=== PATIENT | male | born 1975 | race Caucasian/White ===

== ENCOUNTER 2018-03-11 09:42 | Emergency (ER) | payer BC, SELFPAY ==
[2018-03-11 09:50] VITALS: BP 143/93; PULSE 48; RESP 16; TEMP 36.7; O2SAT 100; BMI 29.4
--- NOTE | 2018-03-11 10:27 | ED_ITS ---
HPI - Eye Problem General Chief complaint: Eye Problems Stated complaint: metal in left eye Time Seen by Provider: 03/11/18 09:52 Source: patient Mode of arrival: ambulatory Limitations: no limitations History of Present Illness HPI Narrative: Patient is a 42-year-old male who presents with left eye irritation and pain. 2 days ago he was working on his car when something fell into his eye. It has been irritated ever since he did try to put Visine in. He was seen evaluated the walk-in clinic he what was able to get up small piece of metal out however he continues to have a rust ring. chief complaint: eye pain and eye redness Onset (ago): day(s) Related Data Previous Rx's Medication Instructions Recorded gentamicin 2 drop EYE-LEFT Q4HRWA 7 Days #5 ml 03/11/18 Allergies Allergy/AdvReac Type Severity Reaction Status Date / Time No Known Drug Allergies Allergy Verified 03/11/18 09:49 Review of Systems Review of Systems GENERAL: Denies chills,fever HEENT: Denies throat pain RESPIRATORY: Denies dyspnea, cough, wheezing CARDIOVASCULAR: Denies chest pain, palpitations GASTROINTESTINAL: Denies nausea, vomiting MUSCULOSKELETAL: Denies extremity pain, injury SKIN: No rash, no laceration, no pruritus NEUROLOGIC: Denies weakness, dizziness, headache, numbness 8 point review of systems is negative except for those stated above and HPI Exam Initial Vital Signs Initial Vital Signs: Vital Signs Temperature 98.0 F 03/11/18 09:50 Pulse Rate 48 L 03/11/18 09:50 Respiratory Rate 16 03/11/18 09:50 Blood Pressure 143/93 H 03/11/18 09:50 Pulse Oximetry 100 03/11/18 09:50 GENERAL: Well-appearing, well-nourished and in no acute distress. CARDIOVASCULAR: peripheral pulses in tact, cap refill <2 sec RESPIRATORY: No respiratory distress, speaks in full sentences without difficulty EXTREMITIES: Normal range of motion, no clubbing or edema. Neurovascularly intact NEUROLOGICAL: Cranial nerves II through XII grossly intact. Normal gait and speech. SKIN: Warm, dry, no petechiae, no rashes or lesions. Eyes Eyelids: eyelids normal Conjunctivae: conjunctivae normal Cornea: corneas abnormal on the left foreign body with rust ring present (9:00 position) and fluorescein used Pupils: PERRL EOM: EOM intact bilaterally Procedures [facility] Procedure Name of Procedure: Rest ring removal Side (if applicable): left Time out performed: Yes Technique/Description of procedure performed: Appropriate in dropped placed use of foot lamp bur hole attempted a. Unsuccessful. 18 gauge needle also attempted unsuccessful Patient tolerated procedure: Well Complications: none Course Orders Ordered: Discontinued Medications Diphtheria/Tetanus/Acell Pertussis (Adacel) 0.5 ml IM .ONCE ONE Stop: 03/11/18 10:23 Last Admin: 03/11/18 10:37 Dose: Erythromycin (Erythromycin Ophth Oint) 1 applic EYE-LEFT NOW ONE Stop: 03/11/18 10:23 Last Admin: 03/11/18 10:32 Dose: 1 applic Proparacaine HCl (Parcaine 0.5% Ophth Vero) 1 drops EYE-LEFT NOW ONE Stop: 03/11/18 10:36 Last Admin: 03/11/18 10:45 Dose: 2 drop Vital Signs - 8 hr 03/11/18 09:50 03/11/18 10:42 Temperature 98.0 F Pulse Rate 48 L 60 Respiratory Rate 16 16 Blood Pressure 143/93 H Blood Pressure [Right Arm] 146/95 H Pulse Oximetry 100 99 MDM - Eye Problem Lab Data Visual acuity from walk-in clinic earlier today left 20/20 right 20/25 both 20/ 16 uncorrect See nursing notes for visual acuity in the ED MDM Narrative Medical decision making narrative: Unsuccessful attempt at removing rest ring. Recommend follow up with Ophthalmology tomorrow. He is given information. Discharge Plan Departure Patient Disposition: Home Clinical Impression: Corneal rust ring of left eye Discharge Date/Time: 03/11/18 10:50 Interventions: ED Discharge Assessment Last Done: 03/11/18 10:50 Instructions: How to Get a Foreign Body Out of Your Eye, Conjunctivitis Activity Restrictions/Additional Instructions: *You have been diagnosed with rust ring left eye *What to do: *Continue to take medications as directed Eye drops every 4 hr while awake eye antibiotic ointment at night or to help with pain Tylenol and Motrin if needed for pain *Follow up with Ophthalmology. Call tomorrow between to schedule an appointment or go directly to their office *Return to ER if you should have discharge, increased pain any new, worsening or concerning symptoms Prescriptions: New gentamicin 0.3 % drops 2 drop EYE-LEFT Q4HRWA 7 Days Qty: 5 RF: 0 Referrals: Laney Hill MD [Physician] - Avelino Alejandro MD [Physician] -
[2018-03-11] MEDS: ERYTHROMYCIN OPHTH 1 GM OINT 1 APPLIC EYE-LEFT (10:32)
[2018-03-11 10:42] VITALS: BP 146/95; PULSE 60; RESP 16; O2SAT 99
[2018-03-11] MEDS: PROPARACAINE 0.5% OPHTH SOL 1 DROPS EYE-LEFT (10:45)
== END 2018-03-11 10:50 | disposition home or self-care (01) ==
PROVIDERS: Emergency Provider Emergency Medicine
DX: H18.892 Other specified disorders of cornea, left eye (principal)
CPT/HCPCS: 65222; 96372; 99283; 90715